=== PATIENT | female | born 1970 | race Two or more races ===

== ENCOUNTER → 2025-08-12 | Outpatient (CLI) | payer MEDICAID, SELFPAY ==
[2025-08-12 09:45] LABS: HCG Qualitative,Urine Negative
--- NOTE | 2025-08-12 10:00 | XR_ITS ---
Examination: CT abdomen with intravenous contrast CT pelvis with intravenous contrast 2-D coronal reconstructions 2-D sagittal reconstructions Date and time of exam: August 12, 2025, 10:34 a.m. INDICATIONS: Right lower abdominal pain beginning 1 month ago. CTDI: vol (mGy) 8.60 DLP: (mGycm) 473 Technique: Multiple axial sections of the abdomen and pelvis have been obtained. 64 slice high-resolution scanner used. 3 mm axial sections have been obtained, post intravenous injection 60 cc [id number] 2-D sagittal, coronal reconstructions obtained. Low dose protocols were performed. One or more of the following dose reduction techniques were used; automated exposure control, adjustment of the mA and/or KV according to patient size, use of iterative reconstruction technique. Findings: 6 mm right lobe liver cyst No biliary tract dilatation No gallstones No pancreatic or adrenal mass No renal or ureteral calculi, no hydronephrosis Aorta normal size No pericecal inflammatory change Normal appendix No bowel obstruction or diverticulitis Osseous structures intact IMPRESSION: Normal appendix No bowel obstruction diverticulitis or free air
== END | disposition home or self-care (01) ==
PROVIDERS: PCP Specialist; Referring Provider Surgery; Visit Provider Surgery
DX: R10.31 Right lower quadrant pain (principal); Z32.00 Encounter for pregnancy test, result unknown
CPT/HCPCS: 74177; 81025; A4649; Q9967